=== PATIENT | male | born 1965 | race Caucasian/White ===

== ENCOUNTER 2018-03-13 16:48 | Observation (INO) | payer MEDICAID, OTHER ==
[2018-03-13 17:01] VITALS: BMI 40.3
--- NOTE | 2018-03-13 18:16 | ED PDOC ---
HPI: Chest Pain Time Seen by Provider: 03/13/18 17:40 Chief Complaint (Nursing): Chest Pain Chief Complaint (Provider): Chest Pain History Per: Patient History/Exam Limitations: no limitations Onset/Duration Of Symptoms: Hrs (x16) Current Symptoms Are (Timing): Still Present Additional Complaint(s): 52 y/o male with no significant PMHx presents to the ED for evaluation of chest pain, onset 16 hours ago. Patient reports pain in the mid-chest and worsens with deep breaths. Patient states pain is non-exertional, non-radiating. Otherwise, patient denies shortness of breath, fever and cough. PMD: Vega Daniels Past Medical History Reviewed: Historical Data, Nursing Documentation, Vital Signs Vital Signs: Last Vital Signs Temp 98.8 F 03/13/18 17:01 Pulse 86 03/13/18 17:01 Resp 16 03/13/18 17:01 BP 147/88 03/13/18 17:01 Pulse Ox 97 03/13/18 17:01 - Medical History PMH: Asthma, HTN Denies: HIV, Chronic Kidney Disease - Surgical History Surgical History: No Surg Hx - Family History Family History: States: Unknown Family Hx - Home Medications Home Medications: Ambulatory Orders Medication Instructions Recorded RX: Aspirin [Aspirin Chewable] 81 mg PO DAILY #0 chew 10/28/14 RX: Losartan [Cozaar] 100 mg PO DAILY #0 tab 10/28/14 RX: Metoprolol Succinate XL 50 mg PO DAILY #0 tab 10/28/14 [Toprol XL] RX: Albuterol HFA [Ventolin HFA 90 1 - 2 puff IH Q4H PRN #1 bottle 03/09/16 mcg/actuation (8 g)] - Allergies Allergies/Adverse Reactions: Allergies Allergy/AdvReac Type Severity Reaction Status Date / Time avocado Allergy RASH Verified 03/13/18 17:01 merbromin Allergy RASH Verified 03/13/18 17:01 [From [employer]] shrimp Allergy RASH Verified 03/13/18 17:01 JUSTIN Risk Score for UA/NSTEMI - JUSTIN Risk Score Age > 64: NO 3 or more CAD Risk Factors: NO Known CAD (Stenosis greater than 50%): NO Aspirin use in past 7 days: NO Severe Angina: YES EKG ST changes greater than 0.5mm: NO Positive Cardiac Marker: NO JUSTIN Score: 1 Risk %: 5% Wells Criteria for PE - Wells Criteria for Pulmonary Embolism Clinical Signs and Symptoms of DVT: No P.E is #1 Diagnosis, or Equally Likely: No Heart Rate >100: No Immobilization at least 3 days;Surgery previous 4 weeks: No Previous, objectively diagnosed PE or DVT: No Hemoptysis: No Malignancy w/treatment within 6 months, or palliative: No Total Score: 0 Review of Systems ROS Statement: Except As Marked, All Systems Reviewed And Found Negative Constitutional: Negative for: Fever Cardiovascular: Positive for: Chest Pain Respiratory: Negative for: Cough, Shortness of Breath Physical Exam - Reviewed Nursing Documentation Reviewed: Yes Vital Signs Reviewed: Yes - Physical Exam Appears: Positive for: No Acute Distress Head Exam: Positive for: ATRAUMATIC, NORMOCEPHALIC Skin: Positive for: Normal Color, Warm, Dry Eye Exam: Positive for: Normal appearance, EOMI, PERRL Neck: Positive for: Normal, Painless ROM, Supple Cardiovascular/Chest: Positive for: Regular Rate, Rhythm. Negative for: Murmur Respiratory: Positive for: Normal Breath Sounds. Negative for: Respiratory Distress Gastrointestinal/Abdominal: Positive for: Normal Exam, Soft. Negative for: Tenderness Back: Positive for: Normal Inspection. Negative for: L CVA Tenderness, R CVA Tenderness, Vertebral Tenderness Extremity: Positive for: Normal ROM. Negative for: Pedal Edema, Deformity Neurologic/Psych: Positive for: Alert, Oriented. Negative for: Motor/Sensory Deficits - Laboratory Results Result Diagrams: 03/13/18 18:45 03/13/18 18:45 - ECG ECG Rhythm: Positive for: Normal QRS, Normal ST Segment, Sinus Rhythm Rate: 85 O2 Sat by Pulse Oximetry: 97 (RA) Pulse Ox Interpretation: Normal Medical Decision Making Medical Decision Making: Time: 175 Impression: Chest pain Differentials include but not limited to ACS, Pulmonary Embolism, less likely TAD, pneumonia and a pneumothorax Plan: -- EKG -- B-Type Natriuretic Peptide -- BMP -- Troponin I -- CBC with Differentials -- D Dimer -- CXR One View -- Aspirin 325 mg PO -- [employer] Scribe Attestation: Documented by Sasha Boston, acting as a scribe for Louie Jacques MD. Provider Scribe Attestation: All medical record entries made by the Scribe were at my direction and personally dictated by me. I have reviewed the chart and agree that the record accurately reflects my personal performance of the history, physical exam, medical decision making, and the department course for this patient. I have also personally directed, reviewed, and agree with the discharge instructions and disposition. Disposition - Clinical Impression Clinical Impression: Chest pain - Patient ED Disposition Is Patient to be Admitted: Yes Discussed With : Vega Hahn Doctor Will See Patient In The: Hospital Counseled Patient/Family Regarding: Studies Performed, Diagnosis - Disposition Disposition Time: 20:00 Condition: FAIR - Pt Status Changed To: Hospital Disposition Of: Observation - POA Present On Arrival: None
[2018-03-13 19:06] LABS: BASO # 0.1 K/uL (0.0-0.2); BASO % 0.7 % (0.0-2.0); EOS # 0.2 K/uL (0.0-0.7); EOS % 2.4 % (0.0-4.0); HEMOGLOBIN 14.5 g/dL (12.0-18.0); LYMPH # 1.9 K/uL (1.0-4.3); LYMPH % 24.5 % (20.0-40.0); MEAN CELL VOLUME 95.9 fl (80.0-94.0); MEAN CORPUSCULAR HGB CONC 34.4 g/dL (33.0-37.0); MEAN PLATELET VOLUME 8.8 fl (7.2-11.7); MONO # 0.8 K/uL (0.0-0.8); MONO % 10.6 % (0.0-10.0); NEUT # 4.8 K/uL (1.8-7.0); NEUT % 61.8 % (50.0-75.0); NRBC % 0.1 % (0.0-0.0); RBC 4.4 Mil/uL (4.40-5.90); RED CELL DISTRIBUTION WIDTH 12.2 % (11.5-14.5); WHITE BLOOD COUNT 7.7 K/uL (4.8-10.8)
[2018-03-13 19:19] LABS: BLOOD UREA NITROGEN 15 mg/dl (9-20); GFR NON-AFRICAN AMERICAN > 60
[2018-03-13 19:37] LABS: B-TYPE NATRIURETIC PEPTIDE 53.6 pg/ml (0-900)
--- NOTE | 2018-03-14 06:47 | CARD ---
APPROVED REPORT Date of service: 03/13/2018 EKG Measurement Heart [id number] <Conclusion> Normal sinus rhythm Normal ECG
--- NOTE | 2018-03-14 09:20 | RAD ---
Date of service: 03/13/2018 PROCEDURE: CHEST RADIOGRAPH, 1 VIEW HISTORY: chest pain COMPARISON: 03/09/2016 FINDINGS: LUNGS: Clear. PLEURA: No pneumothorax or pleural fluid seen. CARDIOVASCULAR: No aortic atherosclerotic calcification present. Heart size probably top-normal. Probably top-normal pulmonary venous prominence. OSSEOUS STRUCTURES: Right inferior lateral marginal osteophytosis VISUALIZED UPPER ABDOMEN: Normal. OTHER FINDINGS: None. IMPRESSION: No definitive interval pathology noted. Findings as detailed above. Correlate clinically
[2018-03-14 10:15] VITALS: TEMP 98.3
[2018-03-14] MEDS ORDERED: Metoprolol Succinate 50 mg XL Tab PO SCH (10:15)
[2018-03-14 11:59] VITALS: BP 155/93
[2018-03-14 12:15] VITALS: RESP 18
[2018-03-14 23:29] VITALS: PULSE 85; O2SAT 97
== END 2018-03-14 14:05 | disposition home or self-care (01) ==
LOC: H.ER 16:48 → H.ERHOLD 20:39 → H.TEL 03-14 09:40
PROVIDERS: ADMIT Family Medicine; ATTEND Family Medicine
DX: R07.9 Chest pain, unspecified (principal); I10 Essential (primary) hypertension; J45.909 Unspecified asthma, uncomplicated; Z91.013 Allergy to seafood; Z91.018 Allergy to other foods
CPT/HCPCS: 71045; 80048; 83880; 84484; 85025; 85378; 93005; 99285; G0378